=== PATIENT | male | born 2000 | race Caucasian/White ===

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

== ENCOUNTER 2022-01-13 19:22 | Emergency (ER) | payer OTHER, SELFPAY ==
[2022-01-13 19:31] VITALS: BP 113/68; PULSE 90; RESP 16; TEMP 36.7; O2SAT 99
--- NOTE | 2022-01-13 19:44 | ED.SKABFB ---
HPI - Skin/Abscess/Foreign Bdy General Chief complaint: Skin/Abscess/Foreign Body Stated complaint: Bump on Buttocks Time Seen by Provider: 01/13/22 19:24 Source: patient Mode of arrival: ambulatory Limitations: no limitations History of Present Illness HPI narrative: 21-year-old male presents to [facility] with complaints of possible abscess to top of my buttocks the past day. Patient reports that he has had numerous cysts of the area in the past. Patient denies fever, bodies, chills, nausea, vomiting or diarrhea. Patient reports that he had a small flareup of the cyst approximately 2 to 3 weeks ago but was not evaluated at that time. MD complaint: abscess/boil Onset (ago): day(s) (1) Location: buttocks Relieving factors: none Exacerbating factors: none Context: none Associated symptoms: denies other symptoms Treatments prior to arrival: none Related Data Allergies Allergy/AdvReac Type Severity Reaction Status Date / Time Sulfa (Sulfonamide Allergy Unknown Unknown Verified 01/13/22 19:44 Antibiotics) DRUGS THAT PROLONG Q-T Allergy Unknown Unknown Uncoded 01/13/22 19:44 INTERVAL Review of Systems Constitutional: Constitutional: Denies chills, Denies fatigue, Denies fever(s) and Denies weakness ENT: Denies dizziness Cardiovascular: Cardiovascular: Denies chest pain and Denies rapid heart rate Respiratory: Respiratory: Denies chest congestion, Denies cough, Denies dyspnea and Denies wheezing Integumentary/Breasts: Comments: abscess to buttocks PMFSH Surgical History Surgical History History of tonsillectomy Family History Family History (Updated 01/13/22 @ 19:46 by Naz Moya APRN) Mother Long QT syndrome Comments At time of signature, I agree with nursing past medical, surgical, social and family history. There is no relevant family history pertinent to the presenting complaint. Exam Const: General: healthy appearing Nutritional Appearance: well nourished Orientation/consciousness: patient oriented x3 Limitations: no limitations Neck: Neck: normal visual inspection Resp: Effort & Inspection: normal respiratory effort and not labored Auscultation: clear to auscultation bilaterally and no crackles Cardio: Rate: regular rate Rhythm: regular rhythm Heart sounds: no murmurs Skin: General skin exam: normal color Rashes: no rashes Other: 2 cm abscess noted to gluteal cleft with mild induration and fluctuance noted. There is no streaking erythema, purulent drainage, bruising or bleeding noted. Neuro: General: patient oriented x3 Speech: normal speech Gait exam (Neuro): Normal gait present Psych: Affect: normal affect Attitude: cooperative Course Course Level of Care: Express Care Visit Vital Signs Vital signs: Vital Signs Temperature 36.7 C 01/13/22 19:31 Pulse Rate 90 01/13/22 19:31 Respiratory Rate 16 01/13/22 19:31 Blood Pressure 113/68 01/13/22 19:31 Pulse Oximetry 99 01/13/22 19:31 Oxygen Delivery Room Air 01/13/22 19:31 Temperature 36.7 C 01/13/22 19:31 Pulse Rate 90 01/13/22 19:31 Respiratory Rate 16 01/13/22 19:31 Blood Pressure 113/68 01/13/22 19:31 Pulse Oximetry 99 01/13/22 19:31 Oxygen Delivery Room Air 01/13/22 19:31 MDM - Skin/Abscess/Foreign Bdy MDM Narrative Medical decision making narrative: Suggested incision and drainage to area. Patient refuses and reports that he would just like to try antibiotics at this time. Informed patient to apply warm compress, alternate Motrin and Tylenol as needed for pain and to proceed to the emergency room if symptoms not improved. Differential Diagnosis Differential diagnosis: Likely insect bites and impetigo Critical Care Time Critical Care Time Critical Care Time: No Discharge Plan Discharge Clinical Impression: Abscess of skin or subcutaneous tissue Qualifiers: Site of cutaneous abscess: buttock Qu
== END 2022-01-13 19:55 | disposition home or self-care (01) ==
PROVIDERS: Emergency Provider Nurse Practitioner Family
DX: L02.31 Cutaneous abscess of buttock (principal)
CPT/HCPCS: 99213; G0463

== ENCOUNTER 2023-03-30 10:16 | Outpatient (CLI) | payer OTHER, SELFPAY ==
[2023-03-30 10:50] LABS: Basophils Percent Auto 0.5 % (0.2-1.2); Eosinophils Absolute Auto 0.1 K/mm3 (0-0.3); Eosinophils Percent Auto 2.6 % (0-4.4); Hematocrit 48.3 % (42.0-52.0); Hemoglobin 16.5 g/dL (14.0-18.0); Immature Granulocyte Absolute 0.03 K/mm3 (0.00-0.031); Immature Granulocyte Percent A 0.5 % (0-0.5); Lymphocytes Absolute Auto 1.68 K/mm3 (0.9-3.2); Lymphocytes Percent Auto 30.7 % (18.3-44.2); Mean Corpuscular HGB Conc 34.2 g/dl (32-36); Mean Corpuscular Hemoglobin 29.8 pg (26-34); Mean Corpuscular Volume 87.3 fl (80-100); Mean Platelet Volume 8.7 fl (7.4-10.4); Monocytes Absolute Auto 0.6 K/mm3 (0.1-0.6); Monocytes Percent Auto 10.1 % (2.6-8.5); Neutrophils Percent Auto 55.6 % (45.5-73.1); Platelet Count Result 291 k/mm3 (150-375); Red Blood Count 5.53 M/mm3 (4.6-6.20); Red Cell Distribution Width 13.4 % (11.5-14.5); White Blood Count 5.5 K/mm3 (4.5-10.0)
[2023-03-30 11:16] LABS: Free T4 Free Thyroxine 0.99 ng/mL (0.78-2.19); Vitamin D 25 Hydroxy 46.3 ng/mL
== END 2023-03-30 10:17 | disposition home or self-care (01) ==
LOC: ANHLAB 10:18
PROVIDERS: PCP Family Medicine; Visit Provider Physician Assistant Medical
DX: R53.83 Other fatigue (principal); F41.9 Anxiety disorder, unspecified; E55.9 Vitamin D deficiency, unspecified
CPT/HCPCS: 36415; 82306; 84439; 84443; 85025

== ENCOUNTER 2023-04-03 17:19 | Emergency (ER) | payer OTHER, SELFPAY ==
--- NOTE | ~2023-04-03 | XR_ITS ---
EXAMINATION: XR chest 2V DATE: 04/03/2023 17:46 INDICATION: Left-sided chest pain TECHNIQUE: PA and lateral views of the chest are obtained. COMPARISON: None available FINDINGS: The lungs are free of acute opacities. No pleural effusion or pneumothorax. The cardiomedia stinal silhouette is normal. The visualized bones and soft tissues are unremarkable. IMPRESSION: 1. No acute cardiopulmonary abnormality. Reviewed, dictated and finalized at location F.
--- NOTE | 2023-04-03 17:21 | ECG_ITS ---
Measurements Intervals [place] Rate: 82 P: 39 KS: 140 QRS: 72 QRSD: 93 T: 77 QT: 348 QTc: 409 Interpretive Statements SINUS RHYTHM WITH FREQUENT SUPRAVENTRICULAR PREMATURE COMPLEXES BASELINE ARTIFACT BORDERLINE ECG COMPARED TO ECG 08/14/2019 16:33:30 SINUS RHYTHM NOW PRESENT Electronically Signed On 04-04-2023 14:33:45 CDT by Jose A Andres M.D.
[2023-04-03 17:32] VITALS: BP 148/80; PULSE 85; RESP 20; TEMP 36.6; O2SAT 100
[2023-04-03 17:39] LABS: Basophils Percent Auto 0.4 % (0.2-1.2); Eosinophils Absolute Auto 0.2 K/mm3 (0-0.3); Eosinophils Percent Auto 2.5 % (0-4.4); Hemoglobin 15.9 g/dL (14.0-18.0); Immature Granulocyte Absolute 0.04 K/mm3 (0.00-0.031); Immature Granulocyte Percent A 0.5 % (0-0.5); Lymphocytes Absolute Auto 2.62 K/mm3 (0.9-3.2); Mean Corpuscular HGB Conc 33.8 g/dl (32-36); Mean Corpuscular Hemoglobin 29.3 pg (26-34); Mean Corpuscular Volume 86.6 fl (80-100); Mean Platelet Volume 8.6 fl (7.4-10.4); Monocytes Absolute Auto 0.7 K/mm3 (0.1-0.6); Monocytes Percent Auto 9.2 % (2.6-8.5); Neutrophils Absolute Auto 4.3 K/mm3 (1.3-6.7); Neutrophils Percent Auto 54.4 % (45.5-73.1); Platelet Count Result 331 k/mm3 (150-375); Red Blood Count 5.43 M/mm3 (4.6-6.20); Red Cell Distribution Width 13.5 % (11.5-14.5)
[2023-04-03 17:50] LABS: Alanine Aminotransferase 73 U/L (6-50); Albumin Level 4.9 g/dL (3.5-5.1); Alkaline Phosphatase 64 U/L (38-126); Anion Gap 12 mmol/L (8-16); Aspartate Amino Transferase 54 U/L (17-59); Bilirubin,Total 0.8 mg/dL (0.2-1.3); Blood Urea Nitrogen 13 mg/dL (9-20); Calcium 9.5 mg/dL (8.4-10.2); Carbon Dioxide 23 mmol/L (22-30); Chloride 102 mmol/L (98-107); Estimated CRCL calculation 126 ml/min; Estimated Glomerular Filt Rate > 60; Glucose 113 mg/dL (65-110); Lipase 56 U/L (23-300); Potassium 3.3 mmol/L (3.4-5.0); Sodium 137 mmol/L (137-145)
[2023-04-03 17:52] LABS: Partial Thromboplastin Time 27.5 SECONDS (22.3-36.8)
[2023-04-03 18:00] LABS: Troponin I < 0.012 ng/mL (0.000-0.034)
[2023-04-03 19:14] VITALS: BP 121/72; PULSE 77; RESP 16; O2SAT 100
--- NOTE | 2023-04-03 19:40 | ED.GENADULT ---
[facility] - General Adult General Chief complaint: Chest Pain Stated complaint: chest pain Time Seen by Provider: 04/03/23 18:58 Source: patient Mode of arrival: ambulatory Limitations: no limitations History of Present Illness HPI narrative: This is a 22-year-old male who presents to the ED with chief complaint of left-sided chest tightness intermittent for the past couple of days. Patient reports that he has had intermittent squeezing/tightness in the left side of the chest and yesterday it was in the left upper abdomen area. Reports that as I interview him his pain has been completely resolved for quite some time. Does endorse intermittent palpitations as well. Denies any shortness of breath, palpitations, syncope, nausea, vomiting, abdominal pain, leg swelling. He is here with family who are concerned for extensive family history of prolonged QT Related Data Allergies Allergy/AdvReac Type Severity Reaction Status Date / Time Sulfa (Sulfonamide Allergy Unknown Unknown Verified 04/03/23 19:09 Antibiotics) DRUGS THAT PROLONG Q-T Allergy Unknown Unknown Uncoded 03/30/23 08:56 INTERVAL Review of Systems Review of Systems: All systems as dictated in [facility] Surgical History Surgical History History of tonsillectomy Family History Family History (Updated 03/30/23 @ 08:55 by Chaya Link MA) Mother Long QT syndrome Depression Thyroid condition Melanoma Sibling Asthma Grandparent Hypertension Heart disease Social History Social History Smoking status: Never smoker Exam Narrative: GENERAL: Well-appearing, well-nourished, and in no acute distress. HEAD: Normocephalic, atraumatic. EYES: PERRLA and EOMI. ENT: Nares clear, no rhinorrhea or epistaxis. Mucous membranes moist. Oropharynx without tonsillar hypertrophy exudate or other lesions. NECK: Supple. No adenopathy or masses. CHEST: No respiratory distress. Clear to auscultation. No wheezes rales or rhonchi HEART: Regular rate and rhythm. No murmur heard. Normal peripheral pulses. ABDOMEN: Soft, nontender, nondistended, normal active bowel sounds. MSK: Normal range of motion. No edema. SKIN: Warm, dry, no rash. NEURO: Alert and oriented x3. No focal deficits. PSYCH: Normal mood and affect. Course Vital Signs Vital signs: Vital Signs Temperature 97.8 F 04/03/23 17:32 Pulse Rate 85 04/03/23 17:32 Respiratory Rate 20 04/03/23 17:32 Blood Pressure 148/80 H 04/03/23 17:32 Pulse Oximetry 100 04/03/23 17:32 Oxygen Delivery Room Air 04/03/23 17:32 Temperature 97.8 F 04/03/23 17:32 Pulse Rate 77 04/03/23 19:14 Respiratory Rate 16 04/03/23 19:14 Blood Pressure 121/72 04/03/23 19:14 Pulse Oximetry 100 04/03/23 19:14 Oxygen Delivery Room Air 04/03/23 17:32 Medical Decision Making MDM Narrative Medical decision making narrative: This is a 22-year-old male who presents to the ED with chief complaint of intermittent chest pain for the past couple of days. Vitals are normal. Exam is benign. When I enter the room to question the patient he is no longer having any chest pain. EKG shows sinus rhythm with frequent supraventricular premature complexes. His heart rate is normal. No evidence of SVT. PERC rule negative. Troponin is negative. Lab work is unremarkable overall. I discussed with the patient that these premature beats may or may not be related to his symptomatic presentation today. He would like to be discharged home before the second troponin. We discussed this and both feel that this is reasonable as he is not having any more chest pain. He feels comfortable following up with PCP. Pt will be discharged in stable condition. Return precautions given and supportive measures discussed. Pt is understanding and agreeable with plan for discharge and follow-up with PCP.
== END 2023-04-03 19:58 | disposition home or self-care (01) ==
LOC: ANHED 19:45
PROVIDERS: Emergency Medicine; Emergency Provider Physician Assistant; PCP Family Medicine
DX: I49.1 Atrial premature depolarization (principal)
CPT/HCPCS: 36415; 71046; 80053; 83690; 84484; 85025; 85610; 85730; 93005; 99284

== ENCOUNTER 2023-12-11 08:07 | Emergency (ER) | payer OTHER, SELFPAY ==
[2023-12-11 08:15] VITALS: BP 122/73; PULSE 84; RESP 16; TEMP 37; O2SAT 98
--- NOTE | 2023-12-11 08:33 | ED.URI ---
HPI - URI/Sore Throat General Chief Complaint: Upper Respiratory Infection Stated Complaint: SORE THROAT/BODY ACHES/CHILLS Time Seen by Provider: 12/11/23 08:21 Source: patient and RN notes reviewed Mode of arrival: ambulatory Limitations: no limitations History of Present Illness HPI Narrative: Patient presents today with a 3 day history of sore throat, chills, body aches. Denies fever, cough, ear pain. Currently rates his pain 6/10 and has been taking Tylenol and ibuprofen with some relief. Related Data Home Medications Medication Instructions Recorded Confirmed No Home Medications 12/11/23 12/11/23 Allergies Allergy/AdvReac Type Severity Reaction Status Date / Time Sulfa (Sulfonamide Allergy Mild Swelling Verified 12/11/23 08:22 Antibiotics) of the Eye DRUGS THAT PROLONG Q-T Allergy Unknown Unknown Uncoded 07/07/23 12:55 INTERVAL Review of Systems Review of Systems: CONSTITUTIONAL: Denies fever, or sweats.+ body aches, chills EYES: Denies visual changes, redness, or discharge. ENT: Denies rhinorrhea, congestion, otalgia.+ sore throat CARDIOVASCULAR: Denies chest pain, palpitations, or edema. RESPIRATORY: Denies cough or dyspnea. GASTROINTESTINAL: Denies abdominal pain, nausea, vomiting, or diarrhea. GENITOURINARY: Denies dysuria or hematuria. SKIN: Denies rash, itching, or wounds. MUSCULOSKELETAL: Denies back pain, joint pain, or myalgia. NEUROLOGIC: Denies headache, numbness, tingling, or weakness. PSYCH: Denies depression or anxiety. [facility] Surgical History Surgical History History of tonsillectomy Family History Family History Mother Long QT syndrome Depression Thyroid condition Melanoma Sibling Asthma Grandparent Hypertension Heart disease Social History Social History Smoking status: Never smoker Comments At time of signature, I have reviewed and agree with nursing past medical, surgical, social and family history unless otherwise noted. Please see nursing chart for further information. There is no relevant family history pertinent to the presenting complaint Exam Narrative: GENERAL: Well-appearing, well-nourished, and in no acute distress. HEAD: Normocephalic, atraumatic. EYES: EOMI. No redness or drainage. Conjunctivae normal. ENT: Mucous membranes pink and moist. Nares clear. No rhinorrhea. TMs normal bilaterally. Throat mildly erythematous. Large amount of thick postnasal drainage in the posterior oropharynx. Uvula midline. NECK: Normal AROM. Supple. No lymphadenopathy. CHEST: No respiratory distress. Clear to auscultation. HEART: Regular rate and rhythm. No murmur appreciated. EXTREMITIES: Normal range of motion. No edema. SKIN: Warm, dry, no rash. Capillary refill normal. Normal skin turgor. NEURO: No focal deficits. Alert and oriented x3. Gait steady. PSYCH: Normal affect. No signs of depression or anxiety. Course Course Level of Care: Express Care Visit Vital Signs Vital signs: Vital Signs Temperature 98.6 F 12/11/23 08:15 Pulse Rate 84 12/11/23 08:15 Respiratory Rate 16 12/11/23 08:15 Blood Pressure 122/73 12/11/23 08:15 Pulse Oximetry 98 12/11/23 08:15 Temperature 98.6 F 12/11/23 08:15 Pulse Rate 84 12/11/23 08:15 Respiratory Rate 16 12/11/23 08:15 Blood Pressure 122/73 12/11/23 08:15 Pulse Oximetry 98 12/11/23 08:15 Reviewed MDM - URI/Sore Throat MDM Narrative Medical decision making narrative: Rapid strep negative. Culture pending. Symptoms viral in etiology. Discussed [id number] medication use and duration of illness. No prescription medications indicated at this time. Anticipatory guidance given. Differential Diagnosis Differential diagnosis: Likely upper respiratory infection, viral infecti
[2023-12-11 08:40] LABS: EDSTREPNEGPOS1 Presumptive Negative
== END 2023-12-11 08:43 | disposition home or self-care (01) ==
PROVIDERS: Emergency Provider Nurse Practitioner; PCP Family Medicine
DX: J02.9 Acute pharyngitis, unspecified (principal)
CPT/HCPCS: 87081; 87880; 99213; G0463

== ENCOUNTER 2024-07-09 15:38 | Emergency (ER) | payer OTHER, SELFPAY ==
--- OUTSIDE RECORDS SUMMARY | 2024-07-09 15:40 | XMS_ITS | Clinical Summary ---
Author Organization [facility] Address [address] [place] [address] Care Team Providers Care Marine Insulator Name Role Phone Loreta Dillard MD Primary Care Provider [phone] Loreta Dillard MD Unavailable [phone] [facility],non-owned Affiliates and Associated Physician Practices is amultiple site organization consisting of ambulatory clinics and hospital sitesin [place], [place], [place] and [place]. This disclosure is being madepursuant to the Care Everywhere program and may not contain all information available regarding this patient. Last updated 18.[facility] Allergies Active Allergy Reactions Criticality Noted Date Comments Sulfa Drugs Swelling 11/05/2009 swelling Medications * Be aware that medications may not be up to date on this document. Alwaysverify current medications with the patient. Medication Sig Dispensed Refills Start Date End Date Status ibuprofen (MOTRIN) 600 MG tablet Take 600 mg by mouth every 6 hours as needed for Pain Active Active Problems Problem Noted Date Diagnosed Date Family history of long QT syndrome 03/02/2013 Assessment & Plan (03/02/2013 2:23 PM CDT): Jaime is a 12 y.o. male with a history of Long QT Syndrome in his mother, as well as the history of sudden in his maternal uncle, possibly secondary to LQTS as well. His symptoms of chest pain do not sound particularly concerning from a cardiac standpoint. He has a normal physical exam, and a normal ECG with a completely normal QTc interval. I suspect that he does not in fact have Long QT Syndrome. However, I discussed with his mother the possibility of sending genetic testing to attempt to identify a causative mutation in the family. Given that his mother is the only member that is symptomatic and on therapy, I have recommended sending testing on her, which we have arranged to do today. Should her testing be normal, than it does not necessarily mean that she does not have Long QT Syndrome, as about 20-25% of those with clinical LQTS will have negative genetic testing. However, should the testing demonstrate a causative mutation, than we could perform targeted testing on the children, to confirm more definitively that they do not in fact have LQTS. I would like to see him back again in 2-3 years for a repeat ECG. However, if his mother's genetic testing is abnormal, I will likely recommend bringing in all three kids for targeted genetic testing sooner than that. Injury, other and unspecified, unspecified site 11/05/2009 Family History Medical History Relation Name Comments Arrhythmia Maternal Grandmother Sudd. <30 Maternal Uncle Arrhythmia Mother Relation Name Status Comments Maternal Grandmother Alive Maternal Uncle Mother Alive Social History Tobacco Use Types Packs/Day Years Used Date Smoking Tobacco: Never Smokeless Tobacco: Never Sex and Gender Information Value Date Recorded Sex Assigned at Not on file Gender Identity Not on file Sexual Orientation Not on file Last Filed Vital Signs Vital Sign Reading Time Taken Comments Blood Pressure 122/68 01/05/2020 10:56 AM CDT Pulse 58 01/05/2020 10:56 AM CDT Temperature 37.1 ??C (98.8 ??F) 08/14/2019 7:30 PM CD T Respiratory Rate 16 01/05/2020 10:56 AM CDT Oxygen Saturation 98% 01/05/2020 10:56 AM CDT Inhaled Oxygen Concentration - - Weight 86.4 kg (190 lb 7.6 oz) 01/05/2020 10:56 AM CDT Height 183.5 cm (6' 0.24 ) 01/05/2020 10:56 AM C DT Body Mass Index 25.66 01/05/2020 10:56 AM CDT Plan of Treatment Health Maintenance Due Date Last Done Comments HIV SCREENING 2017 HPV VACCINE (1 - Male 3-dose series) 2017 MENINGOCOCCAL (Group B) VACC INE (1 of 2 - Standard) 2018 HEPATITIS C SCREENING 04/30/2020 DTAP/TDAP/TD VACCINES (1 - Tdap) 2021 HEPATITIS B VACCINE (1 of 3 - 19+ 3-dose series) 2021 COVID-19 VACCINE (1 - 2023-2 5 season) 2024 INFLUENZA VACCINE (#1) 2024 DEPRESSION SCREENING 06/08/2024 ZOSTER VACCINE (1 of 2) 2052 HIB VACCINE Aged Out No longer eligi ble based on patient's age to complete this topic MENINGOCOCCAL VACCINE Aged Out No pat ron eligible based on patient's age to complete this topic PNEUMOCOCCAL VACCINE Aged Out No long er eligible based on patient's age to complete this topic Care Teams Marine Insulator Relationship Specialty Start Date End Date Loreta Dillard MD PCP - General 04/19/20 Loreta Dillard MD Pediatrics 04/19/20
--- OUTSIDE RECORDS SUMMARY | 2024-07-09 15:40 | XMS_ITS | Referral Summary ---
Author Organization [facility] Address [address] [place] [address] Care Team Providers Care Keg Header Name Role Phone Loreta Dillard MD Primary Care Provider [phone] Loreta Dillard MD Unavailable [phone] Source Comments [facility],non-owned Affiliates and Associated Physician Practices is amultiple site organization consisting of ambulatory clinics and hospital sitesin [place], [place], [place] and [place]. This disclosure is being madepursuant to the Care Everywhere program and may not contain all information available regarding this patient. Last updated 18.[facility] Allergies Active Allergy Reactions Criticality Noted Date [...] Injury, other and unspecified, unspecified site 11/05/2009 Social History Tobacco Use Types Packs/Day Years [...] 01/05/2020 10:56 AM CDT Plan of Treatment Not on file Care Teams Keg Header Relationship Specialty Start Date End Date Loreta Dillard MD PCP - General 04/19/20 Loreta Dillard MD Pediatrics 04/19/20
--- OUTSIDE RECORDS SUMMARY | 2024-07-09 15:40 | XMS_ITS | Patient Health Summary ---
Author Organization [facility] Address [address] [place] [address] Care Team Providers Care Asset Protection Lead Name Role Phone Loreta Dillard MD Primary Care Provider [phone] Loreta Dillard MD Unavailable [phone] Note from [facility],non-owned Affiliates and Associated Physician Practices is amultiple site organization consisting of ambulatory clinics and hospital sitesin [place], [place], [place] and [place]. This disclosure is being madepursuant to the Care Everywhere program and may not contain all information available regarding this patient. Last updated 18.[facility] Allergies * Sulfa Drugs(Swelling) Medications * Be aware that medications may not be up to date on this document. Alwaysverify current medications with the patient. * ibuprofen (MOTRIN) 600 MG tablet Take 600 mg by mouth every 6 hours as needed for Pain Active Problems Problem Noted Date Diagnosed Date Family history of long QT syndrome 03/02/2013 Injury, other and unspecified, unspecified site 11/05/2009 [...] Mass Index 25.66 01/05/2020 10:56 AM CDT Procedures * EKG 15-LEAD(Performed 01/05/2020) Performed for Family history of long QT syndrome * EKG 15-LEAD(Performed 08/14/2019) Performed for Chest pain on breathing * XR CHEST 2VW(Performed 08/14/2019) Performed for Chest pain on breathing * LAB RESULTS ORDER(Performed 09/11/2016) * EKG 15-LEAD(Performed 01/03/2015) Performed for Family history of long QT syndrome * EKG 15-LEAD(Performed 03/02/2013) Performed for Palpitations * XR WRIST RIGHT 2VW(Performed 12/11/2009) Performed for Injury, Other And Unspecified, Unspecified Site * XR WRIST RIGHT 3VW OR MORE(Performed 11/20/2009) Performed for Other Closed Fractures of Distal End of Radius (Alone) * XR WRIST RIGHT 2VW(Performed 11/13/2009) Performed for Other Closed Fractures of Distal End of Radius (Alone) * XR WRIST RIGHT 3VW OR MORE(Performed 11/05/2009) Performed for Injury, Other And Unspecified, Unspecified Site * GROSS EXAM PATHOLOGY(Performed 03/13/2006) Results * EKG 15-LEAD (01/05/2020 9:09 AM CDT) Only the most recent of4 resultswithin the time period is included. Ventricular Rate 66 BPM CG MUSE Atrial Rate 66 BPM CG MUSE P-R Interval 154 ms CG MUSE QRS Duration ms 96 ms CG MUSE Q-T Interval ms 366 ms CG MUSE QTC Calculation (Bezet) 378 ms CG MUSE Calculated P [place] 0 degrees CG MUSE Calculated R [place] 77 degrees CG MUSE Calculated T [place] 68 degrees CG MUSE Interpretation EKG Normal sinus rhythm with sinus arrhythmia Early repolarization Normal ECG When compared with ECG of 14-AUG-2019 19:23, No significant change was found Confirmed by JAD CHAVIS ([id number]) on 01/05/2020 11:24:13 AM CG MUSE 01/05/2020 9:09 AM CDT 01/05/2020 11:24 AM CDT Jad Chavis MD ECG ORDERABLES CG MUSE * XR CHEST 2VW (08/14/2019 6:23 PM CDT) Anatomical Region Laterality Modality Chest Radiographic Vivian ging 08/14/2019 9:40 PM CDT Impressions 08/14/2019 9:41 PM CDT Normal chest. Reading Radiologist: Manish Ramos MD on 08/14/2019 at 9:41 PM Narrative 08/14/2019 9:41 PM CDT INDICATION: Chest pain COMPARISON: November 16, 2006 TECHNIQUE: Frontal and lateral radiographs of the chest. FINDINGS: The heart is normal in size. The lungs are clear. There is no pneumothorax or pleural effusion. The upper abdomen is normal. No bone abnormality is seen. Procedure Note Manish Ramos, DO - 08/14/2019 INDICATION: Chest pain COMPARISON: November 16, 2006 TECHNIQUE: Frontal and lateral radiographs of the chest. FINDINGS: The heart is normal in size. The lungs are clear. There is no pneumothorax or pleural effusion. The upper abdomen is normal. No bone abnormality is seen. IMPRESSION Normal chest. Reading Radiologist: Manish Ramos MD on 08/14/2019 at 9:41 PM Noah Parrish MD DIAGNOSTIC IMAGING O RDERABLES * LAB RESULTS ORDER (09/11/2016 7:14 PM CDT) Narrative 09/11/2016 7:14 PM CDT Ordered by an unspecified provider. Transcriptions Document, Scanned - 07/13/2013 10:38 AM CST Document, Scanned - 07/13/2013 10:38 AM CST Scanned Document LAB - THERAPEUTIC DR DAVIDSON MONITORING ORDERABLES * XR WRIST 2 VW RIGHT (12/11/2009 2:08 PM CDT) Only the most recent of2 resultswithin the time period is included. Anatomical Region Laterality Modality Wrist / Hand Radiographic Vivian ging 12/11/2009 2:51 PM CDT Impressions 12/11/2009 2:52 PM CDT Healing distal radial fracture. Narrative 12/11/2009 2:52 PM CDT EXAMINATION: RIGHT ??XR WRIST 2 VW RIGHT*[id number] ?? dated Dec 11, 2009 2:08:42 PM. HISTORY: ??INJURY, OTHER AND UNSPECIFIED, UNSPECIFIED SITE . FINDINGS: AP, and lateral views of the right wrist were obtained. Comparison is made to prior casted examination of November 20. Subacute distal radial fracture is seen with early callus formation near anatomic alignment. ?? No other imaging abnormality is appreciated. ?? Procedure Note Darryl Tillman - 12/11/2009 EXAMINATION: RIGHT XR WRIST 2 VW RIGHT*[id number] dated Dec 11, 2009 2:08:42 PM. HISTORY: INJURY, OTHER AND UNSPECIFIED, UNSPECIFIED SITE . FINDINGS: AP, and lateral views of the right wrist were obtained. Comparison is made to prior casted examination of November 20. Subacute distal radial fracture is seen with early callus formation near anatomic alignment. No other imaging abnormality is appreciated. IMPRESSION Healing distal radial fracture. Miguel Martinez MD DIAGNOSTIC IMAGING O RDERABLES * XR WRIST 3+ VW RIGHT (11/20/2009 2:08 PM CDT) Only the most recent of2 resultswithin the time period is included. Anatomical Region Laterality Modality Wrist / Hand Radiographic Vivian ging 11/20/2009 3:20 PM CDT Narrative 11/20/2009 3:22 PM CDT Comparison: November 13, 2009 Findings: PA and lateral views of the right wrist. Cast has been placed. Cast material obscures fine bony detail. Again seen is a minimally displaced fracture of distal radius Alignment is unchanged. Interval callus formation, compatible with healing. Diagnosis: Healing distal radial fracture. Procedure Note Astrid Almanzar MD - 11/20/2009 Comparison: November 13, 2009 Findings: PA and lateral views of the right wrist. Cast has been placed. Cast material obscures fine bony detail. Again seen is a minimally displaced fracture of distal radius Alignment is unchanged. Interval callus formation, compatible with healing. Diagnosis: Healing distal radial fracture. Sharon MAHMOOD DIAGNOSTIC IMAGING O RDERABLES * GROSS EXAM PATHOLOGY (03/13/2006 9:30 AM CDT) Result CASE NUMBER [id number] [facility] LAB PATH REPORT Comment: ORDERING PHYSICIAN ??YENI TSANG SPECIMEN TYPE ?Tonsils CLINICAL HISTORY ? The patient is a 5-year-old boy with adenotonsillar hypertrophy. GROSS DESCRIPTION ? The specimen labeled with the patient's name and tonsils is received fresh for gross examination only and consists of an egg-shaped, pink-wu tonsil and multiple tonsillar fragments measuring 2.5 x 1.5 x 1.0 cm and 2.6 x 1.5 x 1.0 cm weighing approximately 6.0 g. ??On cut surface the tonsils have a cerebriform yellow-wu appearance. ??No sections are taken. ??(CT/lw) GROSS DIAGNOSIS ? GROSS DIAGNOSIS ?? TONSILS. This case has been personally reviewed and interpreted by the attending (teaching) pathologist. Materials Technician ? Dena Rothman RESIDENT IN PATHOLOG Guanako Ruiz M.D. PATHOLOGIST ?Sunni Lester M.D. ELECTRONICALLY MAIKELSUNNI SINGH MISCELLANEOUS SAMPLES / Unknown 03/13/2006 9:30 AM CDT 03/13/2006 11:21 AM CDT Historical Provider LAB - PATHOLOGY/C YTOLOGY ORDERABLES [facility] LAB PATH REPORT Care Teams Asset Protection Lead Relationship Specialty Start Date End Date Loreta Dillard MD PCP - General 04/19/20 Loreta Dillard MD Pediatrics 04/19/20
--- OUTSIDE RECORDS SUMMARY | 2024-07-09 15:40 | XMS_ITS | Clinical Summary ---
Author Organization [facility] Address [address] [place] [id number] Care Team Providers Care Dental Technician Apprentice Name Role Phone Marianela Bell MD Primary Care Provider [phone] Allergies Active Allergy Reactions Criticality Noted Date Comments Sulfa (Sulfonamide Antibiotics) Medications metoprolol XL (TOPROL-XL) 25 mg extended release tablet Take 1 tablet (25 mg total) by mouth daily 08/16/2023 Active naproxen (NAPROSYN) 500 mg tablet Take 1 tablet (500 mg total) by mouth 2 (two) times a day with meals 60 tablet 09/17/2023 Active Active Problems Problem Noted Date Diagnosed Date Chronic right shoulder pain 09/17/2023 Injury of right knee 11/21/2021 Chronic pain of right knee 11/21/2021 Lumbago 01/01/2015 Elbow pain 09/14/2013 Closed fracture of fifth metatarsal bone 014 Chest pain 04/01/2011 Family History Medical History Relation Name Comments Low Back Pain Mother Family history of low back pain - (Added by TW Conv) Relation Name Status Comments Mother Social History Tobacco Use Types Packs/Day Years Used Date Smoking Tobacco: Never Sex and Gender Information Value Date Recorded Sex Assigned at Not on file 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 Gender Identity Not on file Sexual Orientation Not on file Obstetrics History Last Filed Vital Signs Vital Sign Reading Time Taken Comments Blood Pressure 124/76 04/08/2011 11:00 AM CDT Pulse 68 04/08/2011 11:00 AM CDT Temperature - - Respiratory Rate - - Oxygen Saturation - - Inhaled Oxygen Concentration - - Weight 88 kg (194 lb) 09/17/2023 8:28 AM CDT Height 182.9 cm (6') 09/17/2023 8:28 AM CDT Body Mass Index 26.31 09/17/2023 8:28 AM CDT Plan of Treatment Health Maintenance Due Date Last Done Comments Depression Screening 2002 Hepatitis C Screening 2002 HPV Vaccines (1 - Male 3-dos e series) 2017 Regular Well Visit/Exam 18-64 2020 DTaP/Tdap/Td Vaccine (7 - Td or Tdap) 12/29/2023 12/28/2013, 06/02/2007, 08/11/2003, Additional history exists Covid-19 Vaccine (3 - 2023-2 5 season) 2024 03/02/2021, 01/30/2021 Influenza Vaccine (#1) 2024 8, 05/29/2006, 2005, Additional history exists Pneumococcal vaccine <65 Completed 003, 2002, 2002, Additional history exists Varicella Vaccines Completed 06/02/2007, 08/11/2003 Meningococcal B Vaccine Completed 02/12/2019, 01/05 Insurance [facility] HMO [facility] Care Teams Dental Technician Apprentice Relationship Specialty Start Date End Date Marianela Bell MD PCP - General Family Medicine 06/04/23
--- OUTSIDE RECORDS SUMMARY | 2024-07-09 15:40 | XMS_ITS | Referral Summary ---
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
[2024-07-09 15:46] VITALS: BP 140/66; PULSE 85; RESP 18; TEMP 36.4; O2SAT 100
--- NOTE | 2024-07-09 16:14 | ED_ITS ---
HPI - General Adult General Chief complaint: Upper Respiratory Infection Stated complaint: Sore Throat and Neck Pain Time Seen by Provider: 07/09/24 16:14 Source: patient Mode of arrival: ambulatory Limitations: no limitations History of Present Illness HPI narrative: 24-year-old male patient presents to the [facility] with complaints of left- sided sore throat and neck pain. Patient states this really just started today but has noticed some slight soreness to the area over the last 3 weeks. Patient states today he felt like his airway was closing. Patient states he was at work working when it started all of a sudden. Denies any allergies or use of EpiPen. Denies any acute trauma to the neck or any new workouts. Denies taking any Tylenol ibuprofen for the pain. Related Data Home Medications ?Medication ?Instructions ?Recorded ?Confirmed ?Last Taken ?Type No Home Medications 12/11/23 12/11/23 Unknown History Allergies Allergy/AdvReac Type Severity Reaction Status Date / Time Sulfa (Sulfonamide Allergy Mild Swelling Verified 07/09/24 16:01 Antibiotics) of the Eye DRUGS THAT PROLONG Q-T Allergy Unknown Unknown Uncoded 07/09/24 16:01 INTERVAL Review of Systems Review of Systems: CONSTITUTIONAL: Denies fever, chills, or sweats. EYES: Denies visual changes, redness, or discharge. ENT: Denies rhinorrhea, congestion, sore throat, or otalgia. CARDIOVASCULAR: Denies chest pain, palpitations, or edema. RESPIRATORY: Denies cough or dyspnea. GASTROINTESTINAL: Denies abdominal pain, nausea, vomiting, or diarrhea. GENITOURINARY: Denies dysuria or hematuria. SKIN: Denies rash or itching. MUSCULOSKELETAL: Denies back pain, joint pain, or myalgia. Positive left-sided neck pain NEUROLOGIC: Denies headache, numbness, or weakness. PSYCHIATRIC: Denies anxiety or depression. COUNTS INCLUDE 234 BEDS AT THE [facility] Surgical History Surgical History History of tonsillectomy Family History Family History Mother Long QT syndrome Depression Thyroid condition Melanoma Sibling Asthma Grandparent Hypertension Heart disease Social History Social History Smoking status: Never smoker Comments At the time of my signature I agree with nursing past medical history, surgical, social, and family history. There is no relevant family history pertinent to the presenting complaint. Exam Narrative: GENERAL: Well-appearing, well-nourished, and in no acute distress. HEAD: Normocephalic, atraumatic. EYES: PERRLA and EOMI. ENT: Nares clear, no rhinorrhea or epistaxis. Mucous membranes moist. posterior pharynx with no erythema, tonsillar enlargement, exudates or lesions present. Bilateral TMs are clear no erythema or foreign bodies the canal. NECK: Supple, no lymphadenopathy. No surface trauma, soft tissue or muscle tenderness noted to the left side , no obvious spasm noted. Trachea midline. No subq emphysema or crepitus. No bailey tenderness, step-offs or deformity to firm Palpation at posterior midline. FROM without limitation or pain, normal flexion, extension, slight pain to left side of the neck with right-sided Lateral bending, no pain withrotation, and axial load. CHEST: Clear to auscultation. No respiratory distress. HEART: Regular rate and rhythm. No murmur heard. Normal peripheral pulses. ABDOMEN: Soft, nontender, nondistended, normal active bowel sounds. EXTREMITIES: Normal range of motion. No edema. SKIN: Warm, dry, no rash. NEURO: No focal deficits. Alert and oriented x3. Course Course Level of Care: Express Care Visit Vital Signs Vital signs: Vital Signs Temperature 36.4 C 07/09/24 15:46 Pulse Rate 85 07/09/24 15:46 Respiratory Rate 18 07/09/24 15:46 Blood Pressure 140/66 07/09/24 15:46 Pulse Oximetry 100 07/09/24 15:46 Oxygen Delivery Room Air 07/09/24 15:46 Temperature 36.4 C 07/09/24 15:46 Pulse Rate 85 07/09/24 15:46 Respiratory Rate 18 07/09/24 15:46 Blood Pressure 140/66 07/09/24 15:46 Pulse Oximetry 100 07/09/24 15:46 Oxygen Delivery Room Air 07/09/24 15:46 vital signs reviewed The patient has been informed that they may have pre-hypertension or Hypertension based on a BP reading in the department. I recommend that the patient call the primary care provider listed on their discharge instructions or a physician of their choice this week to arrange follow up for further evaluation of possible pre-hypertension or Hypertension Medical Decision Making MDM Narrative Medical decision making narrative: Discussed with patient that we swabbed his throat and there is no strep infection at this time causing symptoms. There is no stridor noted on auscultation and no concerns for any airway obstruction. Patient's lungs are clear. Discussed with patient that he could have strained a muscle to left side which could be causing the pain. Encouraged patient to try some [id number] Tylenol ibuprofen as well as alternate ice and heat to the area and gentle massage and stretching to see if this improved. If it does not he needs to follow up with his doctor for further evaluation, treatment possible PT. Patient verbalized understanding denies any other questions or concerns at this time. Differential Diagnosis Differential Diagnosis: differential diagnosis: Viral pharyngitis, pharyngitis, group A strep, infectious mononucleosis, gonococcal pharyngitis, exudative pharyngitis, oral candidiasis. Chronic allergies, postnasal drip, GERD, abscess formation, but glottitis, retropharyngeal abscess formation, or airway obstruction. Cervical spine injury, muscle strain, spasm, torticollis, ligament injury, fracture, subluxation. Vital Signs Vital Signs: Vital Signs Temperature 36.4 C 07/09/24 15:46 Pulse Rate 85 07/09/24 15:46 Respiratory Rate 18 07/09/24 15:46 Blood Pressure 140/66 07/09/24 15:46 Pulse Oximetry 100 07/09/24 15:46 Oxygen Delivery Room Air 07/09/24 15:46 Temperature 36.4 C 07/09/24 15:46 Pulse Rate 85 07/09/24 15:46 Respiratory Rate 18 07/09/24 15:46 Blood Pressure 140/66 07/09/24 15:46 Pulse Oximetry 100 07/09/24 15:46 Oxygen Delivery Room Air 07/09/24 15:46 Critical Care Time Critical Care Time Critical Care Time: No Discharge Plan Discharge Clinical Impression: Acute strain of neck muscle Patient Disposition: Home, Self-Care Condition: Stable Instructions: Antibiotic Form, Muscle Strain (ED), Neck Pain (ED) Additional Instructions: Avoid weight bearing until the pain subsides. alternate Ice and heat to the area 20-30 minutes 4-6 times a day Tylenol for lesser pain Ibuprofen regularly for the next 2-3 days for the inflammation Follow up with your primary care provider if the condition is not improving within 1 week or sooner if the Condition worsens with numbness, tingling, decrease sensation with weakness to seek ER. Patient Language: Lao Prescriptions: No Action No Home Medications Follow-up/Referrals: Marianela Bell MD [Primary Care Provider] - Time of Disposition: 16:49
[2024-07-09 17:14] LABS: EDSTREPNEGPOS1 Negative (Negative)
== END 2024-07-09 16:54 | disposition home or self-care (01) ==
PROVIDERS: Emergency Provider Nurse Practitioner Family; PCP Family Medicine
DX: S16.1XXA Strain of muscle, fascia and tendon at neck level, initial encounter (principal); X58.XXXA Exposure to other specified factors, initial encounter
CPT/HCPCS: 87081; 87880; 99213; G0463

== ENCOUNTER 2024-08-15 18:01 | Emergency (ER) | payer OTHER, SELFPAY ==
--- NOTE | ~2024-08-15 | XR_ITS ---
EXAM: XR wrist LT min 3V DATE: 08/15/2024 18:16 HISTORY: wrist injury-hit by baseball . COMPARISON: None available. FINDINGS: Normal mineralization. No fracture or dislocation. No lytic or blastic lesion. Joint space s are maintained. No erosion or periosteal change. Soft tissues within normal limits. IMPRESSION: No acute osseous finding in the left wrist. Reviewed, dictated and finalized at location K.
--- NOTE | 2024-08-15 18:12 | ED.UPPEXIN ---
HPI - Extremity Injury (Upper) General Chief Complaint: Extremity Injury, Upper Stated Complaint: broken wrist Time Seen by Provider: 08/15/24 18:10 Source: patient Mode of arrival: ambulatory Limitations: no limitations History of Present Illness HPI narrative: Jaime is a 24-year-old male patient presenting to the clinic today with complaints of a left wrist injury. He reports that he took a ground ball off of his left wrist when trying to field it. Has bruising and swelling noted over the volar aspect of the left wrist Related Data Home Medications ?Medication ?Instructions ?Recorded ?Confirmed ?Last Taken ?Type No Home Medications 12/11/23 12/11/23 Unknown History Allergies Allergy/AdvReac Type Severity Reaction Status Date / Time Sulfa (Sulfonamide Allergy Mild Swelling Verified 08/15/24 18:22 Antibiotics) of the Eye DRUGS THAT PROLONG Q-T Allergy Unknown Unknown Uncoded 08/15/24 18:22 INTERVAL Review of Systems Review of Systems: Pertinent positives per HPI. Patient denies any fever, chills, rash, headache, visual changes, dizziness, cough, shortness of breath, chest pain, palpitations, nausea, vomiting, diarrhea, constipation, abdominal pain, or any urinary issues. PMFSH Surgical History Surgical History History of tonsillectomy Family History Family History Mother Long QT syndrome Depression Thyroid condition Melanoma Sibling Asthma Grandparent Hypertension Heart disease Social History Social History Smoking status: Never smoker Comments At the time of my signature, I reviewed and agree with the nursing past medical, surgical, social, and family history. There is no relevant family history pertinent to the patient complaint. Exam Narrative: General: Well-developed, well nourished, in no apparent distress Head: Normocephalic, atraumatic. Cardio: Regular rate and rhythm, s1 and s2 normal, no murmur appreciated. Resp: Clear to auscultation bilaterally, no rhonchi, rales, wheezing or rubs. Musculoskeletal: No deformity, swelling and bruising noted to the volar aspect the left wrist, tender to palpation over the volar aspect of the left wrist, limited range of motion due to pain and swelling, hand grasp is weaker in the left wrist when compared to the right, peripheral pulse strong, no cyanosis, normal gait and station Course Course Emergency Course: Portions of this record may have been created with voice recognition software. Level of Care: Express Care Visit Vital Signs Vital signs: Vital Signs Temperature 36.6 C 08/15/24 18:18 Pulse Rate 88 08/15/24 18:18 Respiratory Rate 18 08/15/24 18:18 Blood Pressure 127/66 08/15/24 18:18 Pulse Oximetry 100 08/15/24 18:18 Oxygen Delivery Room Air 08/15/24 18:18 Temperature 36.6 C 08/15/24 18:18 Pulse Rate 88 08/15/24 18:18 Respiratory Rate 18 08/15/24 18:18 Blood Pressure 127/66 08/15/24 18:18 Pulse Oximetry 100 08/15/24 18:18 Oxygen Delivery Room Air 08/15/24 18:18 Vital signs reviewed MDM - Extremity Injury (Upper) MDM Narrative Medical decision making narrative: At the time of visit patient is resting comfortably on the exam table. Patient appears to be nontoxic. Diagnostics: X-rays negative for any sign of fracture or malalignment of the left wrist. Plan: I suspect patient has a left wrist contusion. Supportive measures were discussed with the patient and they voiced understanding discharge instructions and agrees to treatment plan. Return precautions reviewed Differential Diagnosis Differential diagnosis: Likely sprain and strain of wrist, fracture of wrist and other (Contusion) Imaging Data Radiologist's impression: ITS Impressions Wrist X-Ray 08/15/24 19:02 IMPRESSION: No acute osseous finding in the left wrist. Discharge Plan Discharge Clinical Impression: Contusion of left wrist Qualifiers: Encounter type: initial encounter Qualified Code(s): S60.212A - Contusion of left wrist, initial encounter Patient Disposition: Home, Self-Care Condition: Stable Instructions: Antibiotic Form, Contusion in Adults (ED) Additional Instructions: X-ray of the left wrist is negative for any sign of fracture or malalignment. Rest, ice, elevate, and wear gurinder wrap as directed Tylenol/motrin for pain as discussed. Follow up with your PCP if symptoms persist more than 1 week. Patient Language: Japanese Prescriptions: No Action No Home Medications Follow-up/Referrals: Marianela Bell MD [Primary Care Provider] - Time of Disposition: 19:07 Quality NIHSS Nursing Documentation ED NIHSS nursing documentation: reviewed/agree
[2024-08-15 18:18] VITALS: BP 127/66; PULSE 88; RESP 18; TEMP 36.6; O2SAT 100
[2024-08-15] MEDS: IBUPROFEN 400 MG TABLET 800 MG PO (18:27)
--- OUTSIDE RECORDS SUMMARY | 2024-08-15 19:23 | XMS_ITS | Clinical Summary ---
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 Gender Identity Not on file Sexual Orientation [...] 06/02/2007, 08/11/2003, Additional history exists Covid-19 Vaccine (2023-2 5 season) 2024 03/02/2021, 01/30/2021 Influenza Vaccine (#1) 2024 8, 05/29/2006, 2005, Additional history exists Hepatitis B Screening Completed 05/09/2003 , 2002, 2002, Additional history exists Pneumococcal vaccine <65 Completed 003, 2002, 2002, Additional history exists Varicella Vaccines Completed 06/02/2007, 08/11/2003 Meningococcal B Vaccine Completed 02/12/2019, 01/05 Insurance [facility] Care Teams Avid Editor Relationship Specialty Start Date End Date Marianela Bell MD PCP - General Family Medicine 06/04/23
--- OUTSIDE RECORDS SUMMARY | 2024-08-15 19:23 | XMS_ITS | Patient Health Summary ---
Author Organization [facility] Address [address] [place] [address] Care Team Providers Care Mud Temperer Name Role Phone Loreta Dillard MD Primary Care Provider [phone] Loreta Dillard MD Unavailable [phone] Note from [facility],non-owned Affiliates and Associated Physician Practices is amultiple site organization consisting of ambulatory clinics and hospital sitesin [place], [place], [place] and [place]. This disclosure is being madepursuant to the Care Everywhere program and may not contain all information available regarding this patient. Last updated 18.[facility] Allergies * Sulfa Drugs(Swelling) Medications * Be [...] 58 01/05/2020 10:56 AM CDT Temperature 37.1 C (98.8 F) 08/14/2019 7:30 PM CDT Respiratory Rate 16 01/05/2020 10:56 AM CDT [...] (Bezet) 378 ms CG MUSE Calculated P [place] 0 degrees CG MUSE Calculated R [place] 77 degrees CG MUSE Calculated T [place] 68 degrees CG MUSE Interpretation EKG Normal sinus rhythm with sinus arrhythmia Early repolarization Normal ECG When compared with ECG of 14-AUG-2019 19:23, No significant change was found Confirmed by JAD CHAVIS ([id number]) on 01/05/2020 11:24:13 AM CG MUSE 01/05/2020 [...] Narrative 12/11/2009 2:52 PM CDT EXAMINATION: RIGHT XR WRIST 2 VW RIGHT*[id number] dated Dec 11, 2009 2:08:42 PM. HISTORY: INJURY, OTHER AND UNSPECIFIED, UNSPECIFIED SITE . FINDINGS: AP, and lateral views of the right wrist were obtained. Comparison is made to prior casted examination of November 20. Subacute distal radial fracture is seen with early callus formation near anatomic alignment. No other imaging abnormality is appreciated. Procedure Note Darryl Tillman - 12/11/2009 EXAMINATION: RIGHT XR WRIST 2 VW RIGHT*[id number] dated Dec 11, 2009 2:08:42 PM. HISTORY: [...] AM CDT) Result CASE NUMBER [id number] [facility] PATH REPORT Comment: ORDERING PHYSICIAN YENI TSANG SPECIMEN TYPE Tonsils CLINICAL HISTORY The patient is a 5-year-old boy with adenotonsillar hypertrophy. GROSS DESCRIPTION The specimen labeled with the patient's name and tonsils is received fresh for gross examination only and consists of an egg-shaped, pink-wu tonsil and multiple tonsillar fragments measuring 2.5 x 1.5 x 1.0 cm and 2.6 x 1.5 x 1.0 cm weighing approximately 6.0 g. On cut surface the tonsils have a cerebriform yellow-wu appearance. No sections are taken. (CT/lw) GROSS DIAGNOSIS GROSS DIAGNOSIS TONSILS. This case has been personally reviewed and interpreted by the attending (teaching) pathologist. Metallography Teacher Dena Rothman RESIDENT IN PATHOLOG Guanako Ruiz M.D. PATHOLOGIST Sunni Lester M.D. ELECTRONICALLY SUNNI RAYMOND MISCELLANEOUS SAMPLES / Unknown 03/13/2006 9:30 AM CDT 03/13/2006 11:21 AM CDT Historical Provider LAB - PATHOLOGY/C YTOLOGY ORDERABLES [facility] PATH REPORT Care Teams Mud Temperer Relationship Specialty Start Date End Date Loreta Dillard MD PCP - General 04/19/20 Loreta Dillard MD Pediatrics 04/19/20
--- OUTSIDE RECORDS SUMMARY | 2024-08-15 19:23 | XMS_ITS | Clinical Summary ---
Author Organization [facility] Address [address] [place] [address] Care Team Providers Care Glass Crusher Name Role Phone Loreta Dillard MD Primary Care Provider [phone] Loreta Dillard MD Unavailable [phone] Source Comments [facility],non-owned Affiliates and Associated Physician Practices is amultiple site organization consisting of ambulatory clinics and hospital sitesin [place], [place], [place] and [place]. This disclosure is being madepursuant to the Care Everywhere program and may not contain all information available regarding this patient. Last updated 18.[facility] Allergies Active Allergy Reactions Criticality Noted Date [...] age to complete this topic Care Teams Glass Crusher Relationship Specialty Start Date End Date Gilma, Loreta L, MD PCP - General 04/19/20 Loreta Dillard MD Pediatrics 04/19/20
--- OUTSIDE RECORDS SUMMARY | 2024-08-15 19:23 | XMS_ITS | Referral Summary ---
Author Organization [facility] Address [facility] [place] [address] Care Team Providers Care Bilingual Research Interviewer Name Role Phone Marianela Bell MD Primary Care Provider [phone] Allergies Active Allergy Reactions Criticality Noted Date [...] on file Legal Sex Male 11:44 PM C D STRIPPER Gender Identity Not on file Sexual Orientation [...] Plan of Treatment Not on file Insurance [facility] [place] [address] [place] [id number] [facility] Care Teams Bilingual Research Interviewer Relationship Specialty Start Date End Date Marianela Bell MD [phone] (work) PCP - General Family Medicine 06/04/23
--- OUTSIDE RECORDS SUMMARY | 2024-08-15 19:23 | XMS_ITS | Referral Summary ---
Author Organization [facility] Address [address] [place] [address] Care Team Providers Care Auto Damage Insurance Appraiser Name Role Phone Loreta Dillard MD Primary Care Provider [phone] Loreta Dillard MD Unavailable [phone] Source Comments [facility],non-owned Affiliates and Associated Physician Practices is amultiple site organization consisting of ambulatory clinics and hospital sitesin [place], [place], [place] and [place]. This disclosure is being madepursuant to the Care Everywhere program and may not contain all information available regarding this patient. Last updated 18.[facility] Allergies Active Allergy Reactions Criticality Noted [...] Assessment & Plan (03/02/2013 2:23 PM CDT): Jiame is a 12 y.o. male with a [...] of Treatment Not on file Care Teams Auto Damage Insurance Appraiser Relationship Specialty Start Date End Date Loreta Dillard MD PCP - General 04/19/20 Loreta Dillard MD Pediatrics 04/19/20
== END 2024-08-15 19:08 | disposition home or self-care (01) ==
PROVIDERS: Emergency Provider Nurse Practitioner Family; PCP Family Medicine
DX: S60.212A Contusion of left wrist, initial encounter (principal); W21.00XA Struck by hit or thrown ball, unspecified type, initial encounter
CPT/HCPCS: 73110; 99213; A9270; G0463